=== PATIENT | female | born 2005 | race Caucasian/White ===

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

== ENCOUNTER 2023-06-26 20:01 | Emergency (ER) | payer OTHER ==
[~2023-06-26] VITALS: Ht 157.5 cm; Wt 77.1 kg
[2023-06-26 20:18] VITALS: BP 114/78; PULSE 121; RESP 20; TEMP 98.4; O2SAT 98
[2023-06-26 21:00] VITALS: PULSE 118; O2SAT 98
== END 2023-06-26 21:00 | disposition home or self-care (01) ==
LOC: MED 20:01
DX: F43.0 Acute stress reaction (principal); Z79.899 Other long term (current) drug therapy
CPT/HCPCS: 99281

== ENCOUNTER 2023-07-19 17:59 | Emergency (ER) | payer OTHER ==
[~2023-07-19] VITALS: Ht 160 cm; Wt 79.4 kg
[2023-07-19 18:07] VITALS: BP 122/82; PULSE 103; RESP 19; TEMP 97.1; O2SAT 98
[2023-07-19] MEDS ORDERED: ATA25 PO (19:28)
[2023-07-19 19:40] VITALS: BP 122/82; PULSE 100; RESP 19; TEMP 97.6; O2SAT 98
== END 2023-07-19 19:51 | disposition home or self-care (01) ==
LOC: MED 17:59
DX: F41.9 Anxiety disorder, unspecified (principal)
CPT/HCPCS: 93005; 99283

== ENCOUNTER 2023-09-08 20:27 | Emergency (ER) | payer OTHER ==
[~2023-09-08] VITALS: Ht 162.6 cm; Wt 81.6 kg
[~2023-09-08 20:27] MED LIST: ATA25 PO
[2023-09-08 20:28] VITALS: BP 134/91; PULSE 118; RESP 18; TEMP 98; O2SAT 97
[2023-09-08 21:00] VITALS: O2SAT 97
== END 2023-09-08 21:07 | disposition home or self-care (01) ==
LOC: MED 20:27
DX: F41.0 Panic disorder [episodic paroxysmal anxiety] (principal); Z79.899 Other long term (current) drug therapy
CPT/HCPCS: 81025; 93005; 99283